=== PATIENT | male | born 1975 | race Two or more races ===

== ENCOUNTER 2020-08-03 18:38 | Inpatient (IN) | payer OTHER, MEDICAID ==
[~2020-08-03] VITALS: Ht 175.3 cm; Wt 104.2 kg
[2020-08-03 20:35] LABS: Urine Bacteria FEW /hpf (None Seen); Urine Blood TRACE /uL (Negative); Urine Mucus FEW (None Seen); Urine Specific Gravity 1.011 (1.001-1.035); Urine WBC 46 /hpf (0 - 3)
[2020-08-03] MEDS ORDERED: ASPirin 81 mg TAB PO ONE (21:00)
[2020-08-03 22:19] LABS: Basophils # (auto) 0.1 10 ^3/uL (0-0.2); Basophils % (auto) 0.6 % (0.0-2.0); Eosinophils # (auto) 0.1 10 ^3/uL (0-0.8); Hematocrit 42.9 % (41.0-53.0); Hemoglobin 15.3 g/dL (13.5-17.5); Lymphocytes # (auto) 1.4 10 ^3/uL (0.4-5.4); Mean Corpuscular Hemoglobin 33.9 pg (28.0-32.0); Mean Corpuscular Hgb Conc. 35.7 g/dL (32.0-36.0); Mean Corpuscular Volume 94.7 fL (80.0-100.0); Monocytes # (auto) 0.5 10 ^3/uL (0-1.3); Monocytes % (auto) 5.1 % (0.0-12.0); Neutrophils # (auto) 7.4 10 ^3/uL (1.6-8.6); Neutrophils % (auto) 78.3 % (37.0-80.0); Nucleated Red Blood Cells % 0.1 %; Platelet Count (auto) 198 10^3/uL (140-450); Red Blood Cells 4.53 10^6/uL (4.5-5.90); Red Cell Distribution Width 13.4 % (11.8-14.3); White Blood Cell 9.4 10^3/uL (4.4-10.8)
[2020-08-03 22:42] LABS: Albumin 3.5 g/dL (3.4-5.0); Calcium 8.3 mg/dL (8.5-10.1); Magnesium 2.4 mg/dL (1.6-2.6); Potassium 3.9 mmol/L (3.5-5.1)
[2020-08-03 22:43] LABS: INR 0.95 (0.9-1.15); Partial Thromboplastin Time 25.8 sec (23.0-31.2)
[2020-08-03 22:48] LABS: BUN/Creatinine Ratio 18.7; Bilirubin, Total 0.3 mg/dL (0.2-1.0); Total Protein 7.5 g/dL (6.4-8.2)
[2020-08-03] MEDS ORDERED: ENOXAPARIN SOD 100 MG/1 ML SYRINGE SC ONE (23:15)
[2020-08-04] MEDS ORDERED: NITROGLYCERIN 0.4 MG SL TAB SL PRN (03:30)
[2020-08-04] MEDS ORDERED: DOCUSATE SOD 100 MG CAP PO PRN (03:30)
[2020-08-04] MEDS ORDERED: HYDROcodone-ACET 5/325MG TAB PO PRN (03:30)
[2020-08-04] MEDS ORDERED: MORPHINE SULF INJ 2 MG/ML SYRINGE 1ML IV PRN (03:30)
[2020-08-04] MEDS ORDERED: ACETAMINOPHEN 325 MG TAB PO PRN (03:30)
[2020-08-04] MEDS ORDERED: ONDANSETRON HCL 4 MG/2 ML VIAL IV PRN (03:30)
[2020-08-04] MEDS ORDERED: MORPHINE SULFATE 4 MG/ML SYR/VIAL IV PRN (03:30)
[2020-08-04] MEDS: SODIUM CHLOR 0.9% PF (SALINE LOCK) 10ML VIAL/SYR IV SCH ×3 (06:09→21:02)
[2020-08-04 08:19] LABS: Anion Gap 5 (5-15); Calcium 8.2 mg/dL (8.5-10.1); Carbon Dioxide 28 mmol/L (21-32); Chloride 108 mmol/L (98-107); Potassium 3.7 mmol/L (3.5-5.1); Sodium 141 mmol/L (136-145)
[2020-08-04 08:27] LABS: Alanine Aminotransferase 66 U/L (16-61); Albumin 3.2 g/dL (3.4-5.0); Alkaline Phosphatase 113 U/L (45-117); Aspartate Aminotransferase 41 U/L (15-37); Bilirubin, Total 0.2 mg/dL (0.2-1.0); Blood Urea Nitrogen 29 mg/dL (7-18); Cholesterol 209 mg/dL (< 200); GFR African American 88 mL/min; GFR Non-African American 73 mL/min; Glucose 105 mg/dL (74-106); HDL Cholesterol 33 mg/dL (40-59); Total Protein 6.9 g/dL (6.4-8.2); Triglycerides 580 mg/dL (< 150)
[2020-08-04 08:39] LABS: Basophils # (auto) 0.1 10 ^3/uL (0-0.2); Basophils % (auto) 0.8 % (0.0-2.0); Eosinophils # (auto) 0.2 10 ^3/uL (0-0.8); Eosinophils % (auto) 2.7 % (0.0-7.0); Hematocrit 42.2 % (41.0-53.0); Hemoglobin 14.8 g/dL (13.5-17.5); Lymphocytes # (auto) 1.7 10 ^3/uL (0.4-5.4); Lymphocytes % (auto) 27.2 % (10.0-50.0); Mean Corpuscular Hemoglobin 33.2 pg (28.0-32.0); Mean Corpuscular Hgb Conc. 35.1 g/dL (32.0-36.0); Mean Corpuscular Volume 94.5 fL (80.0-100.0); Monocytes # (auto) 0.5 10 ^3/uL (0-1.3); Monocytes % (auto) 7.7 % (0.0-12.0); Neutrophils # (auto) 3.9 10 ^3/uL (1.6-8.6); Neutrophils % (auto) 61.6 % (37.0-80.0); Nucleated Red Blood Cells % 0.2 %; Platelet Count (auto) 199 10^3/uL (140-450); Red Blood Cells 4.46 10^6/uL (4.5-5.90); Red Cell Distribution Width 13.6 % (11.8-14.3); White Blood Cell 6.3 10^3/uL (4.4-10.8)
[2020-08-04] MEDS: FAMOTIDINE (10MG/ML) 2ML VL IV SCH ×2 (10:00→21:02)
[2020-08-04] MEDS: HEPARIN SODIUM (PORCINE) 5000 UNITS/ML 1ML VIAL SC SCH ×2 (10:00→21:02)
[2020-08-04] MEDS: ASPirin 81 mg TAB PO SCH (10:00)
[2020-08-04] MEDS: SOTALOL HCL 80 MG TAB PO SCH ×2 (10:00→21:04)
[2020-08-04] MEDS ORDERED: cefTRIAXone 1GM/50ML D5W 50 ML IV ONE (12:00)
[2020-08-04] MEDS: ATORVASTATIN 20 MG TAB PO SCH (21:02)
[2020-08-05] MEDS: SODIUM CHLOR 0.9% PF (SALINE LOCK) 10ML VIAL/SYR IV SCH ×3 (06:30→23:35)
[2020-08-05 08:22] LABS: Basophils # (auto) 0 10 ^3/uL (0-0.2); Basophils % (auto) 0.9 % (0.0-2.0); Eosinophils # (auto) 0.1 10 ^3/uL (0-0.8); Eosinophils % (auto) 2.8 % (0.0-7.0); Hematocrit 42.7 % (41.0-53.0); Lymphocytes # (auto) 1.5 10 ^3/uL (0.4-5.4); Lymphocytes % (auto) 28.9 % (10.0-50.0); Mean Corpuscular Hemoglobin 33.1 pg (28.0-32.0); Mean Corpuscular Hgb Conc. 35.1 g/dL (32.0-36.0); Mean Corpuscular Volume 94.5 fL (80.0-100.0); Monocytes # (auto) 0.5 10 ^3/uL (0-1.3); Monocytes % (auto) 8.7 % (0.0-12.0); Neutrophils # (auto) 3.1 10 ^3/uL (1.6-8.6); Neutrophils % (auto) 58.7 % (37.0-80.0); Nucleated Red Blood Cells % 0.1 %; Platelet Count (auto) 175 10^3/uL (140-450); Red Blood Cells 4.52 10^6/uL (4.5-5.90); Red Cell Distribution Width 13.1 % (11.8-14.3); White Blood Cell 5.3 10^3/uL (4.4-10.8)
[2020-08-05 08:38] LABS: Albumin 3.2 g/dL (3.4-5.0); BUN/Creatinine Ratio 28.7; Bilirubin, Total 0.4 mg/dL (0.2-1.0); Calcium 8.6 mg/dL (8.5-10.1); Total Protein 6.9 g/dL (6.4-8.2)
[2020-08-05] MEDS: cefTRIAXone 1GM/50ML D5W 50 ML IV SCH (09:50)
[2020-08-05] MEDS: SOTALOL HCL 80 MG TAB PO SCH ×2 (10:00→23:35)
[2020-08-05] MEDS: FAMOTIDINE (10MG/ML) 2ML VL IV SCH ×2 (10:02→23:35)
[2020-08-05] MEDS: ASPirin 81 mg TAB PO SCH (10:02)
[2020-08-05] MEDS: dilTIAZem 120MG ER CAP PO SCH (10:02)
[2020-08-05] MEDS: HEPARIN SODIUM (PORCINE) 5000 UNITS/ML 1ML VIAL SC SCH ×2 (10:09→23:20)
[2020-08-05] MEDS: ATORVASTATIN 20 MG TAB PO SCH (23:35)
[2020-08-06] VITALS (9 sets, daily range): BP systolic 116–134; BP diastolic 51–91
[2020-08-06] MEDS: SODIUM CHLOR 0.9% PF (SALINE LOCK) 10ML VIAL/SYR IV SCH ×2 (05:38→14:35)
[2020-08-06] MEDS ORDERED: ADENOSINE 87 MG in GIVE UN-DILUTED 0 ML IV STA (08:36)
[2020-08-06] MEDS: cefTRIAXone 1GM/50ML D5W 50 ML IV SCH (09:58)
[2020-08-06] MEDS: dilTIAZem 120MG ER CAP PO SCH (09:58)
[2020-08-06] MEDS: ASPirin 81 mg TAB PO SCH (09:58)
[2020-08-06] MEDS: FAMOTIDINE (10MG/ML) 2ML VL IV SCH (09:58)
[2020-08-06] MEDS: SOTALOL HCL 80 MG TAB PO SCH (09:59)
[2020-08-06] MEDS: HEPARIN SODIUM (PORCINE) 5000 UNITS/ML 1ML VIAL SC SCH (10:03)
[2020-08-07] VITALS: BP 132/68
[2020-08-07 05:00] VITALS: BP 104/70
[2020-08-07 08:00] VITALS: BP 123/82
[2020-08-07] MEDS: cefTRIAXone 1GM/50ML D5W 50 ML IV SCH (08:14)
[2020-08-07] MEDS: ASPirin 81 mg TAB PO SCH (09:33)
[2020-08-07] MEDS: SOTALOL HCL 80 MG TAB PO SCH (09:34)
[2020-08-07] MEDS: dilTIAZem 120MG ER CAP PO SCH (09:34)
[2020-08-07] MEDS: FAMOTIDINE (10MG/ML) 2ML VL IV SCH (09:35)
[2020-08-07] MEDS: HEPARIN SODIUM (PORCINE) 5000 UNITS/ML 1ML VIAL SC SCH (09:40)
[2020-08-07 12:55] VITALS: BP 101/63
[2020-08-07] MEDS: SODIUM CHLOR 0.9% PF (SALINE LOCK) 10ML VIAL/SYR IV SCH (14:00)
== END 2020-08-07 16:01 | disposition home or self-care (01) | DRG 281 ==
LOC: ER 18:38 → EDBD 18:38 → TELE 08-04 03:33 → TELE-CENTR 08-05 23:45
PROVIDERS: ADMIT Nurse Practitioner Family; ATTEND Family Medicine
DX: I21.4 Non-ST elevation (NSTEMI) myocardial infarction (principal); I47.1 Supraventricular tachycardia; N39.0 Urinary tract infection, site not specified; I50.32 Chronic diastolic (congestive) heart failure; I13.0 Hypertensive heart and chronic kidney disease with heart failure and stage 1 through stage 4 chronic kidney disease, or unspecified chronic kidney disease; I48.0 Paroxysmal atrial fibrillation; N18.9 Chronic kidney disease, unspecified; E78.5 Hyperlipidemia, unspecified; E78.00 Pure hypercholesterolemia, unspecified; E66.9 Obesity, unspecified; F17.210 Nicotine dependence, cigarettes, uncomplicated; R73.9 Hyperglycemia, unspecified; E78.1 Pure hyperglyceridemia; Z20.822 Contact with and (suspected) exposure to COVID-19; Z82.49 Family history of ischemic heart disease and other diseases of the circulatory system; Z83.3 Family history of diabetes mellitus; Z68.33 Body mass index [BMI] 33.0-33.9, adult
CPT/HCPCS: 36415; 71045; 78452; 80053; 80061; 82962; 83036; 84484; 85025; 87086; 87426; 93005; 93017; 93306; 96372; G0378; J0153; J0696; J3490

== ENCOUNTER 2021-01-03 10:49 | Emergency (ER) | payer OTHER, MEDICAID ==
[~2021-01-03] VITALS: Ht 175.3 cm; Wt 104.3 kg
[2021-01-03] MEDS ORDERED: ASPirin 81 mg TAB PO ONE (11:15)
[2021-01-03 11:31] LABS: Basophils # (auto) 0.2 10 ^3/uL (0-0.2); Basophils % (auto) 2.8 % (0.0-2.0); Eosinophils # (auto) 0.3 10 ^3/uL (0-0.8); Eosinophils % (auto) 3.8 % (0.0-7.0); Hematocrit 48.1 % (41.0-53.0); Hemoglobin 16.5 g/dL (13.5-17.5); Lymphocytes % (auto) 13.2 % (10.0-50.0); Mean Corpuscular Hemoglobin 32.6 pg (28.0-32.0); Mean Corpuscular Hgb Conc. 34.4 g/dL (32.0-36.0); Mean Corpuscular Volume 94.9 fL (80.0-100.0); Monocytes # (auto) 0.5 10 ^3/uL (0-1.3); Monocytes % (auto) 6.7 % (0.0-12.0); Neutrophils # (auto) 5.9 10 ^3/uL (1.6-8.6); Neutrophils % (auto) 73.5 % (37.0-80.0); Nucleated Red Blood Cells % 0.1 %; Platelet Count (auto) 214 10^3/uL (140-450); Red Blood Cells 5.07 10^6/uL (4.5-5.90); Red Cell Distribution Width 13.7 % (11.8-14.3)
[2021-01-03 11:47] LABS: Albumin 3.4 g/dL (3.4-5.0); Anion Gap 7 (5-15); Blood Urea Nitrogen 26 mg/dL (7-18); Calcium 8.7 mg/dL (8.5-10.1); Carbon Dioxide 21 mmol/L (21-32); Chloride 111 mmol/L (98-107); Glucose 113 mg/dL (74-106); Potassium 3.7 mmol/L (3.5-5.1); Sodium 139 mmol/L (136-145)
[2021-01-03 11:53] LABS: Alanine Aminotransferase 33 U/L (16-61); Alkaline Phosphatase 99 U/L (45-117); Aspartate Aminotransferase 21 U/L (15-37); BUN/Creatinine Ratio 22.2; Bilirubin, Total 0.6 mg/dL (0.2-1.0); GFR African American 87 mL/min; GFR Non-African American 72 mL/min; Total Protein 7.2 g/dL (6.4-8.2)
[2021-01-03] MEDS ORDERED: THIAMINE 100mg/ml INJ (200mg/2ml VIAL) IV ONE (12:00)
[2021-01-03 12:03] LABS: Urine Bacteria NONE SEEN /hpf (None Seen); Urine Blood 2+ /uL (Negative); Urine Specific Gravity 1.024 (1.001-1.035); Urine WBC 3 /hpf (0 - 3)
[2021-01-03 12:07] VITALS: BP 121/80
== END 2021-01-03 12:45 | disposition home or self-care (01) ==
LOC: ER 10:49
DX: R07.89 Other chest pain (principal)
CPT/HCPCS: 36415; 71046; 80053; 81001; 84484; 85025; 93005

== ENCOUNTER 2021-09-24 17:56 | Inpatient (IN) | payer MEDICAID, OTHER ==
[~2021-09-24] VITALS: Ht 175.3 cm; Wt 106.0 kg
[2021-09-24] MEDS ORDERED: dilTIAZem 25 MG/5 ML VIAL IV ONE ×3 (18:45→22:45)
[2021-09-24 19:28] LABS: Basophils # (auto) 0 10 ^3/uL (0-0.2); Basophils % (auto) 0.4 % (0.0-2.0); Eosinophils # (auto) 0.1 10 ^3/uL (0-0.8); Eosinophils % (auto) 1.3 % (0.0-7.0); Hematocrit 43.4 % (41.0-53.0); Lymphocytes # (auto) 1.9 10 ^3/uL (0.4-5.4); Lymphocytes % (auto) 18.6 % (10.0-50.0); Mean Corpuscular Hemoglobin 32.2 pg (28.0-32.0); Mean Corpuscular Hgb Conc. 34.4 g/dL (32.0-36.0); Mean Corpuscular Volume 93.5 fL (80.0-100.0); Monocytes # (auto) 0.8 10 ^3/uL (0-1.3); Monocytes % (auto) 7.6 % (0.0-12.0); Neutrophils # (auto) 7.5 10 ^3/uL (1.6-8.6); Neutrophils % (auto) 72.1 % (37.0-80.0); Nucleated Red Blood Cells % 0.2 %; Red Blood Cells 4.65 10^6/uL (4.5-5.90); Red Cell Distribution Width 13.5 % (11.8-14.3); White Blood Cell 10.4 10^3/uL (4.4-10.8)
[2021-09-24 19:44] LABS: Potassium 4.1 mmol/L (3.5-5.1)
[2021-09-24 19:49] LABS: Albumin 3.3 g/dL (3.4-5.0); Calcium 8.6 mg/dL (8.5-10.1); Magnesium 2.2 mg/dL (1.6-2.6)
[2021-09-24 19:52] LABS: Bilirubin, Total 0.4 mg/dL (0.2-1.0); Total Protein 6.8 g/dL (6.4-8.2)
[2021-09-24] MEDS ORDERED: HEPARIN DRIP/D5W 100UNITS/ML 250 ML IV SCH (22:45)
[2021-09-24] MEDS ORDERED: dilTIAZem 125mg/125ml BAG KIT 125 ML IV ONE (22:45)
[2021-09-24] MEDS ORDERED: MORPHINE SULFATE INJECTION 2 MG/ML SYRG IV PRN (23:00)
[2021-09-24] MEDS ORDERED: ONDANSETRON HCL 4 MG/2 ML VIAL IV PRN (23:00)
[2021-09-24] MEDS ORDERED: NITROGLYCERIN 0.4 MG SL TAB SL PRN (23:00)
[2021-09-24] MEDS ORDERED: ACETAMINOPHEN 325 MG TAB PO PRN (23:00)
[2021-09-24] MEDS: dilTIAZem 125mg/125ml BAG KIT 100 ML IV SCH (23:14)
[2021-09-25] MEDS: dilTIAZem 125mg/125ml BAG KIT 100 ML IV SCH
[2021-09-25] MEDS ORDERED: HEPARIN SODIUM (PORCINE) 5000 UNITS/ML 1ML VIAL ONE (01:08)
[2021-09-25 01:52] LABS: INR 0.96 (0.9-1.15); Partial Thromboplastin Time 26.8 sec (23.6-33.0)
[2021-09-25] MEDS ORDERED: MORPHINE SULFATE 4 MG/ML SYR/VIAL ONE (05:23)
[2021-09-25] MEDS ORDERED: FAMOTIDINE (10MG/ML) 2ML VL IV ONE (05:30)
[2021-09-25 06:49] LABS: Basophils # (auto) 0 10 ^3/uL (0-0.2); Basophils % (auto) 0.6 % (0.0-2.0); Eosinophils # (auto) 0.2 10 ^3/uL (0-0.8); Eosinophils % (auto) 2.1 % (0.0-7.0); Hematocrit 41.7 % (41.0-53.0); Hemoglobin 14.9 g/dL (13.5-17.5); Lymphocytes # (auto) 1.6 10 ^3/uL (0.4-5.4); Lymphocytes % (auto) 21.6 % (10.0-50.0); Mean Corpuscular Hemoglobin 33.3 pg (28.0-32.0); Mean Corpuscular Hgb Conc. 35.8 g/dL (32.0-36.0); Mean Corpuscular Volume 93.1 fL (80.0-100.0); Monocytes # (auto) 0.5 10 ^3/uL (0-1.3); Monocytes % (auto) 7.5 % (0.0-12.0); Neutrophils % (auto) 68.2 % (37.0-80.0); Nucleated Red Blood Cells % 0.1 %; Red Blood Cells 4.48 10^6/uL (4.5-5.90); Red Cell Distribution Width 13.7 % (11.8-14.3); White Blood Cell 7.3 10^3/uL (4.4-10.8)
[2021-09-25 07:16] LABS: Albumin 3.2 g/dL (3.4-5.0); Calcium 8.3 mg/dL (8.5-10.1)
[2021-09-25 07:21] LABS: BUN/Creatinine Ratio 22.2; Bilirubin, Total 0.4 mg/dL (0.2-1.0); Total Protein 6.7 g/dL (6.4-8.2)
[2021-09-25] MEDS: NICOTINE 21MG/24 HR TOPICAL PATCH TD SCH (09:07)
[2021-09-25] MEDS: FAMOTIDINE 20 MG TAB PO SCH (09:07)
[2021-09-25] MEDS ORDERED: SOTALOL HCL 80 MG TAB PO SCH (10:00)
[2021-09-25] MEDS ORDERED: dilTIAZem 120MG ER CAP PO SCH (10:00)
[2021-09-25 10:01] LABS: INR 1.03 (0.9-1.15); Partial Thromboplastin Time 34.8 sec (23.6-33.0)
[2021-09-25] MEDS ORDERED: DILT-100 PO (11:41)
[2021-09-25] MEDS ORDERED: SOTA80TA57 PO (11:41)
[2021-09-25] MEDS ORDERED: HEPARIN SODIUM (PORCINE) 5000 UNITS/ML 1ML VIAL IV ONE (12:00)
[2021-09-25 13:43] LABS: INR 1.02 (0.9-1.15)
[2021-09-25 13:54] LABS: Partial Thromboplastin Time 114.5 sec (23.6-33.0)
[2021-09-25] MEDS ORDERED: DIGOXIN (250MCG/ML) 2 ML AMPULE IV ONE (16:15)
[2021-09-25] MEDS: SOTALOL HCL 80 MG TAB PO SCH ×2 (17:15→21:26)
[2021-09-25 18:56] VITALS: BP 107/66
[2021-09-25] MEDS: APIXABAN 5 MG TAB PO SCH (21:26)
[2021-09-25 22:00] VITALS: BP 112/74
[2021-09-26 05:08] VITALS: BP 98/73
[2021-09-26 09:00] VITALS: BP 111/71
[2021-09-26] MEDS: NICOTINE 21MG/24 HR TOPICAL PATCH TD SCH ×2 (10:00→10:07)
[2021-09-26] MEDS: SOTALOL HCL 80 MG TAB PO SCH (10:06)
[2021-09-26] MEDS: FAMOTIDINE 20 MG TAB PO SCH (10:07)
[2021-09-26] MEDS: APIXABAN 5 MG TAB PO SCH (10:07)
[2021-09-26] MEDS ORDERED: SOTA80TA20 PO (11:17)
[2021-09-26] MEDS ORDERED: APIX5TAB PO (11:17)
[2021-09-26 11:55] VITALS: BP 111/71
== END 2021-09-26 12:39 | disposition home or self-care (01) | DRG 308 ==
LOC: ER 18:09 → TELE 22:48 → UNDOADMIN 22:48 → TELE-WESTW 09-25 18:23
PROVIDERS: ADMIT Nurse Practitioner; ATTEND Internal Medicine
DX: I48.0 Paroxysmal atrial fibrillation (principal); I50.33 Acute on chronic diastolic (congestive) heart failure; D68.9 Coagulation defect, unspecified; E66.01 Morbid (severe) obesity due to excess calories; Z20.822 Contact with and (suspected) exposure to COVID-19; J44.9 Chronic obstructive pulmonary disease, unspecified; R42 Dizziness and giddiness; Z87.891 Personal history of nicotine dependence; Z82.49 Family history of ischemic heart disease and other diseases of the circulatory system; Z83.3 Family history of diabetes mellitus; Z68.34 Body mass index [BMI] 34.0-34.9, adult; Z72.89 Other problems related to lifestyle
CPT/HCPCS: 36415; 71045; 80053; 83735; 83880; 84439; 84443; 84484; 85025; 85610; 85730; 87426; 93005; 93306; 96374; 96375; G0378; J3490

== ENCOUNTER 2024-09-09 00:20 | Emergency (ER) | payer OTHER ==
[~2024-09-09] VITALS: Ht 175.3 cm; Wt 127.0 kg
[~2024-09-09 00:20] MED LIST: APIX5TAB PO; DILT120C44 PO; SOTA80TA20 PO
--- NOTE | 2024-09-09 00:51 | ED.PDOC ---
GI ASSESSMENT HPI Comments HPI: Poor Historian. 48-year-old male brought in by ambulance from home for sudden onset of umbilical pain where he felt a bulging of the umbilicus. Pain is constant nonradiating. No associated symptoms. No nausea or vomiting. Last bowel movement was earlier today. No urinary symptoms. This never happened before. Past Medical History: Atrial fibrillation, tobacco abuse Past Surgical History: Denies any REVIEW OF SYSTEMS: CONSTITUTIONAL: Denies acute: fever, diaphoresis, chills, generalized weakness. HEAD: Denies acute: headache, photophobia Eyes: Denies acute: Double vision, vision loss, eye pain, eye discharge. EARS: Denies acute: tinnitus, hearing loss, ear discharge, ear pain, THROAT: Denies acute: sore throat, swelling, difficulty swallowing , pain with swallowing, change in voice. NECK: Denies acute: neck pain, neck swelling, stiff neck. HEART: Denies acute : chest pain, palpitations, LUNGS: Denies acute: SOB, wheezing, cough, hemoptysis ABDOMEN: Denies acute: Nausea, Vomiting, diarrhea, melena , hematemesis, hematochezia SKIN: Denies acute: rash, redness, lesions, itchiness. EXTREMITIES: Denies acute: calf pain, numbness, tingling, weakness, denies pain in extremity. Denies acute: Low back pain. Neuro: Denies acute: focal neurological deficit, motor or sensory focal neurological deficit, tremors, seizure like activity, confusion, dizziness, change in mental status, loss of bowel or bladder function, cauda equina like symptoms. : Denies acute: dysuria, hematuria, flank pain, increase in urinary frequency. PSYCH: Denies acute: hallucination, suicidal ideation, homicidal ideation. PHYSICAL EXAM: General: no acute distress, awake and alert. Head: normocephalic, atraumatic. Neck: supple, trachea is midline, no swelling. Throat: Normal phonation. Eyes:, no erythema, no purulent discharge, no proptosis, no icterus. Heart: regular rate, regular rhythm, no significant murmur appreciated. Lungs: no apparent respiratory distress, Able to speak in full sentences. No wheezing, no rhonchi, no crackles. No stridors Clear to auscultation bilaterally. Abdomen: Periumbilical focal tender to palpation, non distended, soft, no guarding, no rebound, + bowel sounds. Neuro: Awake, Alert, oriented to name, self, situation, follows commands GCS=15. Speech is normal. Skin: no petechia, no purpura, no cyanosis, non-pale, not jaundice. Lower extremities: --trace bilateral - Pitting edema no deformity, no focal swelling, no calf TTP. Makes eye contact. moves all four extremities. Face: no apparent facial droop. ED COURSE: Time Seen by MD: 00:26 Primary Care Provider: KIM Reviewed Notes: Nurses Notes, Allergies Allergies: Coded Allergies: NO KNOWN ALLERGIES (Unverified , 10/30/16) Home Meds Active Scripts Diltiazem HCl (Cartia Xt) 120 Mg Cap, 120 MG PO DAILY for 30 Days, #30 CAP Prov:JOYCE BENITEZ MD 03/29/22 Apixaban Base (ELIQUIS) 5 Mg Tab, 5 MG PO BID for 60 Days, #120 TAB Prov:TAN CALI MD 09/26/21 Sotalol Hcl (Betapace) 80 Mg Tab, 80 MG PO BID for 60 Days, #120 TAB Prov:TAN CALI MD 09/26/21 Information Source: Patient Past Medical History PAST MEDICAL HISTORY: AFIB Surgical History: Denies all surgeries Family History Family History: Family hx of DM, Family hx of HTN Social History Smoker: Non-Smoker Alcohol: Denies ETOH Use Drugs: Denies Drug Use Lives In: Home Was a procedure done? Was a procedure done?: No GI differential Dx Differential Diagnosis: Other (DDX include but not limited to diverticulitis, colitis, gastroenteritis, acute abdomen, SBO, enteritis, constipation, volvulus, appendicitis, Gallbladder disease, choledocolithiasis, ascending cholangitis, pancreatitis, intraAbdominal mass/neoplasm, hepatitis, UTI, pylonephritis, kidney stone, aneurysm, dissection, Inflammatory bowel disease, gastroparesis, ischemic bowel.) X-Ray, Labs, Meds, VS Vital Signs Date Time Temp Pulse Resp B/P (MAP) Pulse Ox O2 Delivery O2 Flow Rate FiO2 09/09/24 00:20 98.9 100 16 162/106 (124) 99 Lab Test 09/09/24 02:02 09/09/24 00:46 Range/Units Troponin I High Sensitivity 7 7 </=54 ng/L White Blood Count 5.5 4.4-10.8 10^3/uL Red Blood Count 4.46 L 4.5-5.90 10^6/uL Hemoglobin 14.1 13.5-17.5 g/dL Hematocrit 40.3 L 41.0-53.0 % Mean Corpuscular Volume 90.4 80.0-100.0 fL Mean Corpuscular Hemoglobin 31.5 28.0-32.0 pg Mean Corpuscular Hemoglobin Concent 34.9 32.0-36.0 g/dL Red Cell Distribution Width 14.3 11.8-14.3 % Platelet Count 196 140-450 10^3/uL Mean Platelet Volume 8.7 6.9-10.8 fL Neutrophils (%) (Auto) 61.7 37.0-80.0 % Lymphocytes (%) (Auto) 20.8 10.0-50.0 % Monocytes (%) (Auto) 13.4 H 0.0-12.0 % Eosinophils (%) (Auto) 3.2 0.0-7.0 % Basophils (%) (Auto) 0.9 0.0-2.0 % Neutrophils # (Auto) 3.4 1.6-8.6 10 ^3/uL Lymphocytes # (Auto) 1.2 0.4-5.4 10 ^3/uL Monocytes # (Auto) 0.7 0-1.3 10 ^3/uL Eosinophils # (Auto) 0.2 0-0.8 10 ^3/uL Basophils # (Auto) 0 0-0.2 10 ^3/uL Nucleated Red Blood Cells 0.0 % Sodium Level 142 136-145 mmol/L Potassium Level 3.7 3.5-5.1 mmol/L Chloride Level 107 98-107 mmol/L Carbon Dioxide Level 27 20-31 mmol/L Anion Gap 8 5-15 Blood Urea Nitrogen 24 H 9-23 mg/dL Creatinine 1.09 0.700-1.30 mg/dL Glomerular Filtration Rate Calc 84 >90 mL/min BUN/Creatinine Ratio 22.0 H 10.0-20.0 Serum Glucose 97 74-106 mg/dL Lactic Acid Level 0.9 0.4-2.0 mmol/L Calcium Level 9.7 8.7-10.4 mg/dL Total Bilirubin 0.3 0.2-1.0 mg/dL Aspartate Amino Transferase (AST) 30 13-40 U/L Alanine Aminotransferase (ALT) 35 7-40 U/L Alkaline Phosphatase 102 46-116 U/L Total Protein 6.5 5.7-8.2 g/dL Albumin 4.3 3.2-4.8 g/dL Lipase 38 12-53 U/L [address] [address] Ph: [phone] DIAGNOSTIC IMAGING Diagnostic Imaging Report : [id number] Signed PATIENT: THAIS MALLOY ACCT: [id number] UNIT: [id number] : 1975 LOC: ER ROOM / BED: / AGE / SEX: 48 / M ADM STATUS: REG ER SERVICE 0026 ORDERING PHYSICIAN: RAYO PENNINGTON DO PROCEDURE(s): ABPL - CT AB PEL WO CON-NO ORAL OR IV REASON: periumbilical pain/ possible hernia ORDER NUMBER(s): [id number], ACCESSION NUMBER(s): [id number] Exam: CT CT AB PEL WO CON-NO ORAL OR IV History: periumbilical pain/ possible hernia Comparison Study: None available at time of dictation. Technique: Multidetector spiral CT of the abdomen was performed from lung bases to pubic symphysis. Imaging was performed without IV contrast. Axial, coronal and sagittal multiplanar reformats were obtained from the axial data set by the technologist. Radiation Dose : 1. Abdomen/Pelvis: CTDIvol 21.2 mGy, DLP 1443.69 mGy*cm. Findings: Evaluation of solid organs is limited due to lack of intravenous contrast use. Lung Bases: No acute or significant lung base finding. Normal heart size. No pleural or pericardial effusion. Liver: The liver is normal in size. No focal lesions. Gallbladder and Biliary Tree: The gallbladder is contracted. Spleen: Unremarkable Pancreas: The pancreas is grossly normal in appearance. Adrenal Glands: Unremarkable Kidneys: There is a 2 mm nonobstructing calculus at the lower pole of the right kidney. Exophytic from the lateral upper left renal midportion there is a 3.9 x 5.0 cm cortical cyst. Bladder: Grossly unremarkable for degree of distention. Bowel: The stomach is grossly normal in appearance. There is no evidence for small bowel obstruction. Mild mural thickening of proximal jejunal loops is noted, probably representing an enteritis. Stool and diverticula are noted in the colon. A normal appendix is identified in the right lower quadrant. Ascites: Absent Lymphadenopathy: No mesenteric, retroperitoneal or periportal lymphadenopathy. Abdominal Wall and Mesentery: Unremarkable. Vasculature: The visualized abdominal aorta is normal in size and caliber. Evaluation of abdominal and pelvic vessels is limited due to lack of intravenous contrast. Pelvic Organs: Unremarkable Musculoskeletal: No aggressive focal bony lesions, acute fractures or dislocation. IMPRESSION: 1. Query mild proximal enteritis. 2. Diverticulosis. 3. Nonobstructing right nephrolithiasis. 4. Left renal cyst for which no further imaging follow-up is necessary. Radiation optimization: All CT scans at this facility use at least one of these dose optimization techniques: automated exposure control mA and/or kV adjustment per patient size (includes targeted exams where dose is matched to clinical indication) or iterative reconstruction. ATED BY: VILMA BUSTILLO MD DICTATED DATE/TIME: 09/09/24302 SIGNED BY: VILMA BUSTILLO MD SIGNED DATE/TIME: 09/09/24302 CC: Time of 1ST Reevaluation: 03:42 Reevaluation 1ST: Improved Patient Education/Counseling: Diagnosis, Treatment Family Education/Counseling: Other Comments Patient presented with the above HPI.---abdominal pain in male---workup was initiated. patient was found with the above mentioned diagnosis. the following medications were ordered: please refer to order lists of meds and tests obtained by myself Dr. Pennington. Patient ED course and VS have been stabilized. Patient has been reassessed in the ED and remained in a stable condition. Pertinent incidental findings were discussed with the patient and/or family. Patient/family voices understanding and is agreeable with plan. Patient has been observed in the ED adequate length of time to insure improvement/stability. Escalation of care considered: Consideration of escalation to observation or admission Patient was DISCHARGED home in a stable condition. All the reports of any imaging studies that were ordered by myself were reviewed by myself. Departure 1 Departure Time of Disposition: 03:41 Impression: Primary Impression: Umbilical pain Disposition: 01 HOME / SELF CARE / HOMELESS Condition: Stable Additional Instructions: Additional discharge instructions: You MUST follow-up with your primary care/family doctor in 1 to 2 days. If you are unable to see your primary care/family doctor, please return to our emergency room for re-assessment and re-evaluation in 1 to 2 days. Return to the emergency room here in our facility or to the nearest ER [facility] if your symptoms change or worsen. CONSULTATIONS: you MUST Follow-up for consultation as soon as possible with: gastroenterology and general surgery in 1-2 days. Please call for appointment. You MUST call the consultants office yourself to make an appointment. You may need to arrange that through your insurance and/or your primary/family doctor. If you are unable to see the programmer analyst consultant in 1 to 2 days, you must return to our emergency room (or any other ER of your choice) for re-assessment and re- evaluation. Adequate fluid hydration. Avoid fatty greasy spicy food. Avoid caffeinated products. Avoid NSAIDs. Use Tylenol as needed as instructed for pain control. Below is a copy of your radiological report for follow up: [place] [address] Ph: [phone] DIAGNOSTIC IMAGING Diagnostic Imaging Report : [id number] Signed PATIENT: THAIS MALLOY ACCT: [id number] UNIT: [id number] : 1975 LOC: ER ROOM / BED: / AGE / SEX: 48 / M ADM STATUS: REG ER SERVICE 0026 ORDERING PHYSICIAN: RAYO PENNINGTON DO PROCEDURE(s): ABPL - CT AB PEL WO CON-NO ORAL OR IV REASON: periumbilical pain/ possible hernia ORDER NUMBER(s): [id number], ACCESSION NUMBER(s): [id number] Exam: CT CT AB PEL WO CON-NO ORAL OR IV History: periumbilical pain/ possible hernia Comparison Study: None available at time of dictation. Technique: Multidetector spiral CT of the abdomen was performed from lung bases to pubic symphysis. Imaging was performed without IV contrast. Axial, coronal and sagittal multiplanar reformats were obtained from the axial data set by the technologist. Radiation Dose : 1. Abdomen/Pelvis: CTDIvol 21.2 mGy, DLP 1443.69 mGy*cm. Findings: Evaluation of solid organs is limited due to lack of intravenous contrast use. Lung Bases: No acute or significant lung base finding. Normal heart size. No pleural or pericardial effusion. Liver: The liver is normal in size. No focal lesions. Gallbladder and Biliary Tree: The gallbladder is contracted. Spleen: Unremarkable Pancreas: The pancreas is grossly normal in appearance. Adrenal Glands: Unremarkable Kidneys: There is a 2 mm nonobstructing calculus at the lower pole of the right kidney. Exophytic from the lateral upper left renal midportion there is a 3.9 x 5.0 cm cortical cyst. Bladder: Grossly unremarkable for degree of distention. Bowel: The stomach is grossly normal in appearance. There is no evidence for small bowel obstruction. Mild mural thickening of proximal jejunal loops is noted, probably representing an enteritis. Stool and diverticula are noted in the colon. A normal appendix is identified in the right lower quadrant. Ascites: Absent Lymphadenopathy: No mesenteric, retroperitoneal or periportal lymphadenopathy. Abdominal Wall and Mesentery: Unremarkable. Vasculature: The visualized abdominal aorta is normal in size and caliber. Evaluation of abdominal and pelvic vessels is limited due to lack of intravenous contrast. Pelvic Organs: Unremarkable Musculoskeletal: No aggressive focal bony lesions, acute fractures or dislocation. IMPRESSION: 1. Query mild proximal enteritis. 2. Diverticulosis. 3. Nonobstructing right nephrolithiasis. 4. Left renal cyst for which no further imaging follow-up is necessary. Radiation optimization: All CT scans at this facility use at least one of these dose optimization techniques: automated exposure control mA and/or kV adjustment per patient size (includes targeted exams where dose is matched to clinical indication) or iterative reconstruction. ATED BY: VILMA BUSTILLO MD DICTATED DATE/TIME: 09/09/24302 SIGNED BY: VILMA BUSTILLO MD SIGNED DATE/TIME: 09/09/24302 CC: Discharged With: Self Critical Care Note Critical Care Time?: No Heart Score Heart Score: Heart Score Response (Comments) Value History N/A 0 EKG N/A 0 Age N/A 0 Risk Factors N/A 0 Troponin N/A 0 Total 0 I personally scribed for RAYO PENNINGTON DO ([email or web address]) on 09/09/24 at 03:20. Electronically submitted by Joe Koch ([email or web address]). RAYO PENNINGTON DO Sep 09, 2024 00:51
[2024-09-09 01:03] LABS: Basophils # (auto) 0 10 ^3/uL (0-0.2); Basophils % (auto) 0.9 % (0.0-2.0); Eosinophils # (auto) 0.2 10 ^3/uL (0-0.8); Eosinophils % (auto) 3.2 % (0.0-7.0); Hematocrit 40.3 % (41.0-53.0); Hemoglobin 14.1 g/dL (13.5-17.5); Lymphocytes # (auto) 1.2 10 ^3/uL (0.4-5.4); Lymphocytes % (auto) 20.8 % (10.0-50.0); Mean Corpuscular Hemoglobin 31.5 pg (28.0-32.0); Mean Corpuscular Hgb Conc. 34.9 g/dL (32.0-36.0); Mean Corpuscular Volume 90.4 fL (80.0-100.0); Monocytes # (auto) 0.7 10 ^3/uL (0-1.3); Monocytes % (auto) 13.4 % (0.0-12.0); Neutrophils # (auto) 3.4 10 ^3/uL (1.6-8.6); Neutrophils % (auto) 61.7 % (37.0-80.0); Platelet Count (auto) 196 10^3/uL (140-450); Red Blood Cells 4.46 10^6/uL (4.5-5.90); Red Cell Distribution Width 14.3 % (11.8-14.3); White Blood Cell 5.5 10^3/uL (4.4-10.8)
[2024-09-09 01:15] LABS: Alanine Aminotransferase 35 U/L (7-40); Albumin 4.3 g/dL (3.2-4.8); Alkaline Phosphatase 102 U/L (46-116); Anion Gap 8 (5-15); Aspartate Aminotransferase 30 U/L (13-40); Blood Urea Nitrogen 24 mg/dL (9-23); Calcium 9.7 mg/dL (8.7-10.4); Carbon Dioxide 27 mmol/L (20-31); Chloride 107 mmol/L (98-107); Glucose 97 mg/dL (74-106); Lipase 38 U/L (12-53); Potassium 3.7 mmol/L (3.5-5.1); Sodium 142 mmol/L (136-145)
[2024-09-09 01:16] LABS: Bilirubin, Total 0.3 mg/dL (0.2-1.0); Total Protein 6.5 g/dL (5.7-8.2)
--- NOTE | 2024-09-09 03:07 | DVH ---
Exam: CT CT AB PEL WO CON-NO ORAL OR IV History: periumbilical pain/ possible hernia Comparison Study: None available at time of dictation. Technique: Multidetector spiral CT of the abdomen was performed from lung bases to pubic symphysis. Imaging was performed without IV contrast. Axial, coronal and sagittal multiplanar reformats were ob tained from the axial data set by the technologist. Radiation Dose : 1. Abdomen/Pelvis: CTDIvol 21.2 mGy, DLP 1443.69 mGy*cm. Findings: Evaluation of solid organs is limited due to lack of intravenous contrast use. Lung Bases: No acute or significant lung base finding. Normal heart size. No pleural or pericardial effusion. Liver: The liver is normal in size. No focal lesions. Gallbladder and Biliary Tree: The gallbladder is contracted. Spleen: Unremarkable Pancreas: The pancreas is grossly normal in appearance. Adrenal Glands: Unremarkable Kidneys: There is a 2 mm nonobstructing calculus at the lower pole of the right kidney. Exophytic fr om the lateral upper left renal midportion there is a 3.9 x 5.0 cm cortical cyst. Bladder: Grossly unremarkable for degree of distention. Bowel: The stomach is grossly normal in appearance. There is no evidence for small bowel obstruction. Mild mural thickening of proximal jejunal loops is noted, probably representing an enteritis. Stoo l and diverticula are noted in the colon. A normal appendix is identified in the right lower quadran t. Ascites: Absent Lymphadenopathy: No mesenteric, retroperitoneal or periportal lymphadenopathy. Abdominal Wall and Mesentery: Unremarkable. Vasculature: The visualized abdominal aorta is normal in size and caliber. Evaluation of abdominal a nd pelvic vessels is limited due to lack of intravenous contrast. Pelvic Organs: Unremarkable Musculoskeletal: No aggressive focal bony lesions, acute fractures or dislocation. IMPRESSION: 1. Query mild proximal enteritis. 2. Diverticulosis. 3. Nonobstructing right nephrolithiasis. 4. Left renal cyst for which no further imaging follow-up is necessary. Radiation optimization: All CT scans at this facility use at least one of these dose optimization prosper hniques: automated exposure control mA and/or kV adjustment per patient size (includes targeted exam s where dose is matched to clinical indication) or iterative reconstruction.
[2024-09-09 07:00] VITALS: BP 142/86; PULSE 86; RESP 18; TEMP 98.6; O2SAT 98
== END 2024-09-09 07:10 | disposition home or self-care (01) ==
LOC: ER 00:20 → EDBD 00:20 → ER 07:10
DX: R10.33 Periumbilical pain (principal); I48.91 Unspecified atrial fibrillation; Z79.899 Other long term (current) drug therapy
CPT/HCPCS: 36415; 74176; 80053; 83605; 83690; 84484; 85025

== ENCOUNTER 2024-10-12 20:18 | Emergency (ER) | payer MEDICAID ==
[~2024-10-12] VITALS: Ht 175.3 cm; Wt 113.6 kg
--- NOTE | 2024-10-12 20:37 | ECG ---
[facility] Test Date: 2024-10-12 Test Time: 20:30:20 Pat Name: THAIS MALLOY Department: ED Room: Gender: M Kinder Teacher: : 1975 Requested By: EMERGENCY EMERGENCY Order Number: [id number] Reading MD: Conrad Da Silva Measurements Intervals [place] Rate: 236 P: 64 MS: 88 QRS: -76 QRSD: 84 T: 97 QT: 239 QTc: 474 Interpretive Statements Supraventricular tachycardia Left anterior fascicular block Abnormal R-wave progression, late transition Repolarization abnormality, prob rate related Baseline wander in lead(s) III,V4 Electronically Signed On 10-15-2024 19:03:55 PDT by Conrad Da Silva Please click the below link to view image of tracing.
[2024-10-12 20:44] VITALS: PULSE 99; RESP 14; TEMP 98.3; O2SAT 99
--- NOTE | 2024-10-12 20:46 | ED.PDOC ---
HPI Comments 48 y/o M, with PMHX of AFib, HTN, and HLD presents to the ED for CC of chest pain. Patient states, that he has been experiencing chest pain x20 minutes prior to arrival to the ED. Patient relays, that he has experienced tachycardic symptoms in the past with most recent episode being last week. Patient's EKG showed HR 236 SVT upon arrival to the ED; patient transferred to bed for further care. Chief Complaint: Chest Pain Time Seen by MD: 20:30 Primary Care Provider: KIM Reviewed Notes: Nurses Notes, Medications, Allergies Allergies: Coded Allergies: NO KNOWN ALLERGIES (Unverified , 10/30/16) Home Meds Active Scripts Diltiazem HCl (Cartia Xt) 120 Mg Cap, 120 MG PO DAILY for 30 Days, #30 CAP Prov:JOYCE BENITEZ MD 03/29/22 Apixaban Base (ELIQUIS) 5 Mg Tab, 5 MG PO BID for 60 Days, #120 TAB Prov:TAN CALI MD 09/26/21 Sotalol Hcl (Betapace) 80 Mg Tab, 80 MG PO BID for 60 Days, #120 TAB Prov:TAN CALI MD 09/26/21 Information Source: Patient Severity: Severe Timing: Minutes Duration: Since onset Prehospital treatment: None Onset: At Rest Cardiac Risk Factors: Smoker, HTN PE Risk Factors: None History of: None Associated Signs and Symptoms: N/V Past Medical History PAST MEDICAL HISTORY: AFIB Surgical History: Denies all surgeries Family History Family History: Family hx of DM, Family hx of HTN Social History Smoker: Cigarettes Alcohol: Occasionally Drugs: Denies Drug Use Lives In: Home Constitutional: denies: chills, diaphoresis, fatigue, fever, malaise, sweats, weakness, others EENTM: denies: blurred vision, double vision, ear bleeding, ear discharge, ear drainage, ear pain, ear ringing, eye pain, eye redness, hearing loss, mouth pain, mouth swelling, nasal discharge, nose bleeding, nose congestion, nose pain, photophobia, tearing, throat pain, throat swelling, voice changes, others Respiratory: denies: cough, hemoptysis, orthopnea, SOB at rest, shortness of breath, SOB with excertion, stridor, wheezing, others Cardiovascular: reports: chest pain; denies: dizzy spells, diaphoresis, Dyspnea on exertion, edema, irregular heart beat, left arm pain, lightheadedness, palpitations, PND, syncope, others Gastrointestinal: denies: abdomen distended, abdominal pain, blood streaked bowels, constipated, diarrhea, dysphagia, difficulty swallowing, hematemesis, melena, nausea, poor appetite, poor fluid intake, rectal bleeding, rectal pain, vomiting, others Genitourinary: denies: burning, dysuria, flank pain, frequency, hematuria, incontinence, penile discharge, penile sore, pain, testicle pain, testicle swelling, urgency, others Neurological: denies: dizziness, fainting, headache, left sided numbness, left sided weakness, numbness, paresthesia, pre-existing deficit, right sided numbness, right sided weakness, seizure, speech problems, tingling, tremors, weakness, others Musculoskeletal: denies: back pain, gout, joint pain, joint swelling, muscle pain, muscle stiffness, neck pain, others Integumetry: denies: bruises, change in color, change in hair/nails, dryness, laceration, lesions, lumps, rash, wounds, others Allergic/Immunocompromised: denies: Difficulty Healing, Frequent Infections, Hives, Itching, others Hematologic/Lymphatic: denies: anemia, blood clots, easy bleeding, easy bruising, swollen glands, others Endocrine: denies: excessive hunger, excessive sweating, excessive thirst, excessive urination, flushing, intolerance to cold, intolerance to heat, unexplained weight gain, unexplained weight loss, others Psychiatric: denies: anxiety, bipolar disorder, depression, hopeless, panic di sorder, schizophrenia, sleepless, suicidal, others All Other Systems: Reviewed and Negative Physical Exam General Appearance: Moderate Distress HEENT: Normal ENT Inspection, Pharynx Normal, TMs Normal Neck: Full Range of Motion, Non-Tender, Normal, Normal Inspection Respiratory: Chest Non-Tender, Lungs Clear, No Accessory Muscle Use, No Respiratory Distress, Normal Breath Sounds Cardiovascular: No Edema, No JVD, No Murmur, No Gallop, Tachycardia Breast Exam: Deferred Gastrointestinal: No Organomegaly, Non Tender, No Pulsatile Mass, Normal Bowel Sounds, Soft Genitalia: Deferred Pelvic: Deferred Rectal: Deferred Extremities: No calf tenderness, Normal capillary refill, Normal inspection, Normal range of motion, Non-tender, No pedal edema Musculoskeletal : Apperance: Normal Neurologic: Alert, 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 Was a procedure done?: No CP Differential Dx Differential Diagnosis: A-fib, Other (SVT) X-Ray, Labs, Meds, VS Vital Signs Date Time Temp Pulse Resp B/P (MAP) Pulse Ox O2 Delivery O2 Flow Rate FiO2 10/12/24 20:55 101 10/12/24 20:45 97.6 53 24 130/105 (113) 100 10/12/24 20:42 101 10/12/24 20:30 236 Lab Test 10/12/24 20:47 Range/Units White Blood Count Pending Red Blood Count Pending Hemoglobin Pending Hematocrit Pending Mean Corpuscular Volume Pending Mean Corpuscular Hemoglobin Pending Mean Corpuscular Hemoglobin Concent Pending Red Cell Distribution Width Pending Platelet Count Pending Mean Platelet Volume Pending Neutrophils (%) (Auto) Pending Lymphocytes (%) (Auto) Pending Monocytes (%) (Auto) Pending Basophils (%) (Auto) Pending Neutrophils # (Auto) Pending Lymphocytes # (Auto) Pending Monocytes # (Auto) Pending Sodium Level Pending Potassium Level Pending Chloride Level Pending Carbon Dioxide Level Pending Anion Gap Pending Blood Urea Nitrogen Pending Creatinine Pending Glomerular Filtration Rate Calc Pending BUN/Creatinine Ratio Pending Serum Glucose Pending Calcium Level Pending Troponin I High Sensitivity Pending IV Hep-Lock was established The patient's vital signs have remained stable After significant amount of vomiting, the patient self converted. The patient will be discharged The patient was to follow up with the primary care doctor The patient will return to the emergency department the condition worsens Time of 1ST Reevaluation: 21:00 Reevaluation 1ST: Unchanged Time of 2ND Reevaluation: 21:26 Reevaluation 2ND: Resolved Patient Education/Counseling: Diagnosis, Treatment, Prognosis, Need For Follow Up Family Education/Counseling: No Family Present Departure 1 Departure Time of Disposition: 21:26 Impression: Primary Impression: SVT (supraventricular tachycardia) Disposition: 01 HOME / SELF CARE / HOMELESS Condition: Fair Discharged With: Self Critical Care Note Critical Care Time?: No Stability Stability form required: No Heart Score Heart Score: Heart Score Response (Comments) Value History N/A 0 EKG N/A 0 Age N/A 0 Risk Factors N/A 0 Troponin N/A 0 Total 0 I personally scribed for JANEL RACHEL MD ([email or web address]) on 10/12/24 at 20:45. Electronically submitted by Yani Manzo ([employer]). I personally scribed for JANEL RACHEL MD ([email or web address]) on 10/12/24 at 20:54. Electronically submitted by Yani Manzo ([employer]). I personally scribed for JANEL RACHEL MD ([email or web address]) on 10/12/24 at 20:55. Electronically submitted by Yani Manzo ([employer]). JANEL RACHEL MD Oct 12, 2024 20:45
[2024-10-12 21:01] LABS: Basophils # (auto) 0.1 10 ^3/uL (0-0.2); Basophils % (auto) 1.2 % (0.0-2.0); Eosinophils # (auto) 0.2 10 ^3/uL (0-0.8); Eosinophils % (auto) 1.6 % (0.0-7.0); Hematocrit 48.6 % (41.0-53.0); Hemoglobin 16.4 g/dL (13.5-17.5); Lymphocytes # (auto) 2.7 10 ^3/uL (0.4-5.4); Lymphocytes % (auto) 28.1 % (10.0-50.0); Mean Corpuscular Hgb Conc. 33.7 g/dL (32.0-36.0); Monocytes # (auto) 0.7 10 ^3/uL (0-1.3); Neutrophils # (auto) 5.9 10 ^3/uL (1.6-8.6); Neutrophils % (auto) 62.1 % (37.0-80.0); Nucleated Red Blood Cells % 0.1 %; Platelet Count (auto) 221 10^3/uL (140-450); Red Blood Cells 5.29 10^6/uL (4.5-5.90); Red Cell Distribution Width 14.9 % (11.8-14.3); White Blood Cell 9.4 10^3/uL (4.4-10.8)
[2024-10-12 21:45] VITALS: BP 116/87; PULSE 104; RESP 12; O2SAT 95
[2024-10-12 21:48] LABS: Chloride 103 mmol/L (98-107); Sodium 138 mmol/L (136-145)
[2024-10-12 21:49] LABS: Anion Gap 14 (5-15); Calcium 9.8 mg/dL (8.7-10.4); Carbon Dioxide 21 mmol/L (20-31)
[2024-10-12 21:50] LABS: Potassium 3.3 mmol/L (3.5-5.1)
[2024-10-12 21:54] LABS: BUN/Creatinine Ratio 13.3 (10.0-20.0); Blood Urea Nitrogen 20 mg/dL (9-23)
[2024-10-12 21:55] LABS: Glucose 189 mg/dL (74-106)
--- NOTE | 2024-10-12 23:50 | ECG ---
[facility] Test Date: 2024-10-12 Test Time: 20:42:41 Pat Name: THAIS MALLOY Department: ER Room: Gender: M Senior Web Applications Developer: ER : 1975 Requested By: EMERGENCY EMERGENCY Order Number: [id number] Reading MD: Conrad Da Silva Measurements Intervals [place] Rate: 101 P: 55 RI: 145 QRS: -36 QRSD: 94 T: 61 QT: 347 QTc: 450 Interpretive Statements Sinus tachycardia Probable left atrial enlargement Left axis deviation Electronically Signed On 10-15-2024 19:04:39 PDT by Conrad Da Silva Please click the below link to view image of tracing.
== END 2024-10-12 21:46 | disposition home or self-care (01) ==
LOC: ER 20:18
DX: I47.10 Supraventricular tachycardia, unspecified (principal); F17.210 Nicotine dependence, cigarettes, uncomplicated; Z79.899 Other long term (current) drug therapy
CPT/HCPCS: 36415; 80048; 84484; 85025; 93005